=== PATIENT | female | born 1970 | race Two or more races ===

== ENCOUNTER 2019-10-01 12:58 | Inpatient (IN) | payer SELFPAY ==
[~2019-10-01] VITALS: Ht 157.5 cm; Wt 68.1 kg
[2019-10-01] MEDS ORDERED: MIDAZOLAM 1 MG/ML, 2ML IVPush ONE ×3 (13:00→14:00)
--- NOTE | 2019-10-01 13:00 | NUR ---
1254 code neuro p[address] [phone] dr malin in department/at bedside
[2019-10-01] MEDS ORDERED: MIDAZOLAM 1 MG/ML, 2ML ONE (13:04)
--- NOTE | 2019-10-01 13:23 | NUR ---
1322: Succinylcholine 100mg, Etomidate 20mg IV, intubated with 8ETT by Dr. Vasquez w/out difficulty. +color change easy cap, = B breath sounds. RT @ BS.
[2019-10-01] MEDS ORDERED: OMNIPAQUE 350 MG/ML, 100ML BOTTLE ONE (13:24)
[2019-10-01] MEDS ORDERED: PROPOFOL 100 ML IV PRN (13:26)
[2019-10-01] MEDS ORDERED: PHENYTOIN SODIUM 1,000 MG in SODIUM CHLORIDE 0.9% 100 ML IV ONE (13:30)
[2019-10-01] MEDS ORDERED: SUCCINYLCHOLINE 20 MG/ML, 10ML IVPush ONE (13:30)
[2019-10-01] MEDS ORDERED: PLEASE ENTER HEIGHT AND WEIGHT MC SCH (13:30)
[2019-10-01] MEDS ORDERED: PLEASE ENTER ALLERGIES MC SCH (13:30)
[2019-10-01] MEDS ORDERED: ETOMIDATE 20 MG/10 ML IV ONE (13:30)
[2019-10-01 13:47] LABS: BASOPHILS # (AUTO) 0.04 x10^3/uL (0-0.1); BASOPHILS % (AUTO) 0 % (0-1); EOSINOPHILS # (AUTO) 0.25 x10^3/uL (0-0.4); EOSINOPHILS % (AUTO) 2 % (1-7); LYMPHOCYTES # (AUTO) 3.69 x10^3/uL (1-3.4); LYMPHOCYTES % (AUTO) 33 % (22-44); MD NO; MEAN CORPUSCULAR HEMOGLOBIN 28.2 pg (27.0-34.8); MEAN CORPUSCULAR HGB CONC 32.5 g/dL (32.4-35.8); MEAN CORPUSCULAR VOLUME 86.8 fL (80-100); MEAN PLATELET VOLUME 7.3 fL (7.4-10.4); MONOCYTES # (AUTO) 0.54 x10^3/uL (0.2-0.8); MONOCYTES % (AUTO) 5 % (2-9); NEUTROPHILS % (AUTO) 59 % (42-75); PLATELET COUNT 295 x10^3/uL (130-400); RED BLOOD COUNT 4.61 x10^6/uL (3.82-5.3); RED CELL DISTRIBUTION WIDTH 14.1 % (9.6-15.2)
[2019-10-01 13:55] LABS: ALANINE AMINOTRANSFERASE 23 U/L (12-78); ALBUMIN 3.4 g/dL (3.4-5.0); ANION GAP 3 mmol/L (5-15); CALCIUM 8.3 mg/dL (8.5-10.1); CHLORIDE 112 mmol/L (98-107); INTERNATIONAL NORMALIZED RATIO 0.95 (0.93-1.1)
[2019-10-01 13:57] LABS: ALKALINE PHOSPHATASE 71 U/L (45-117); BILIRUBIN,TOTAL 0.2 mg/dL (0.2-1.0); CREATININE 0.96 mg/dL (0.55-1.02); TOTAL PROTEIN 7.4 g/dL (6.4-8.2)
--- NOTE | 2019-10-01 13:57 | NUR ---
late entry: [facility] Pt started having jerky movemnt, then was not speaking or able to walk. EMS was called. Pt on arrival was having tonic clonic movements with generalized neuro deficets. Pt was not responsive with a gcs of 9. Pt then was taken to CT and back to the ed. Emergency md and Neuro Md (alejandro) Evaluated pt at bedside and was determined to best intubate her to protect her airway since the seizures continued. Pt was responisve to versed and propafol and diilatin infused. Awaiting further orders at this time.
[2019-10-01] MEDS ORDERED: SODIUM CHLORIDE FLUSH 10ML SYR IVF PRN (14:00)
[2019-10-01] MEDS ORDERED: FILTER 0.22 MICRON FOR PHENYTOIN IV PRN (14:00)
[2019-10-01] MEDS ORDERED: SODIUM CHLORIDE 0.9% 1,000 ML IV ONE (14:02)
[2019-10-01 14:09] LABS: SALICYLATE LEVEL < 1.7 mg/dL (2.8-20.0)
--- NOTE | 2019-10-01 14:12 | NUR ---
stat eeg ordered/ called and spoke with daisha ([phone]) and they are aware of exam. she will notify kathie who does eeg's and inform him of order.
[2019-10-01] MEDS ORDERED: VALPROATE SODIUM IV SCH (14:30)
[2019-10-01] MEDS ORDERED: SODIUM CHLORIDE 0.9% IV SCH (14:30)
[2019-10-01] MEDS ORDERED: SODIUM CHLORIDE 0.9% 1,000ML IVBOLUS ONE (14:30)
[2019-10-01] MEDS ORDERED: MIDAZOLAM HCL 25 MG in SODIUM CHLORIDE 0.9% 245 ML IV PRN (14:33)
--- NOTE | 2019-10-01 14:35 | NUR ---
Pts bp dropping, informed. Pt to have versed drip.
--- NOTE | 2019-10-01 14:36 | NUR ---
mandiy collected by water resource project manager given back to family members at bedside. 1 bag of belongins with clothes and underware in it.
[2019-10-01] MEDS ORDERED: AZITHROMYCIN 500 MG in SODIUM CHLORIDE 0.9% 250 ML IVPB ONE (15:00)
[2019-10-01] MEDS ORDERED: SODIUM CHLORIDE 0.9% IV ONE (15:00)
[2019-10-01] MEDS ORDERED: LORazepam 2 MG/ML, 1ML IVPush PRN (15:00)
[2019-10-01] MEDS ORDERED: ONDANSETRON 2MG/ML, 2ML IVPush PRN (15:00)
[2019-10-01] MEDS ORDERED: LABETALOL 5MG/ML, 20ML IVPush PRN (15:00)
[2019-10-01] MEDS ORDERED: POLYETHYLENE GLYCOL 17 GM PACKET PO PRN (15:00)
[2019-10-01] MEDS ORDERED: VALPROATE SODIUM IV ONE (15:00)
[2019-10-01] MEDS ORDERED: OXYcodone IR 5MG TABLET PO PRN (15:00)
[2019-10-01] MEDS ORDERED: CEFTRIAXONE PMX 1GM/50ML 50 ML IVPB ONE (15:00)
[2019-10-01] MEDS ORDERED: BISACODYL 10 MG SUPP PR PRN ×2 (15:00→17:00)
[2019-10-01] MEDS ORDERED: CEFTRIAXONE PMX 1GM/50ML 50 ML ONE (15:43)
--- NOTE | 2019-10-01 15:48 | NUR ---
Report called to Antoinette ROME in [facility]. Aware pt going to MRI. Pt has 3pivs and 5 drips going. Pt resting in room.
[2019-10-01] MEDS ORDERED: ACETAMINOPHEN 650 MG/20.3 ML UDC ONE (15:50)
[2019-10-01] MEDS: ACETAMINOPHEN 325 MG TABLET PO PRN (15:53)
[2019-10-01] MEDS ORDERED: INSULIN LISPRO 100 UNITS/ML, PEN SQ-INSULIN SCH (16:00)
--- NOTE | 2019-10-01 16:40 | NUR ---
Pt transported to safely to MRI without complications and procedure was started. Bedside report was given to On[facility] RNs. Pt vss upon this rn leaving room. All drip on appropriate equipment for MRI. This concludes this [facility] care.
[2019-10-01] MEDS ORDERED: MIDAZOLAM 1 MG/ML, 5ML ONE (16:41)
[2019-10-01] MEDS ORDERED: ETOMIDATE 40 MG/20 ML ONE (16:41)
[2019-10-01] MEDS ORDERED: PROPOFOL 10 MG/ML, 100ML IV ONE (16:41)
[2019-10-01] MEDS ORDERED: SUCCINYLCHOLINE 20 MG/ML, 10ML ONE (16:41)
[2019-10-01] MEDS ORDERED: NOREPINEPHRINE 4 MG in SODIUM CHLORIDE 0.9% 246 ML IV PRN (16:53)
[2019-10-01] MEDS ORDERED: DEXTROSE 50%, 50ML SYRINGE IVPush PRN (17:00)
[2019-10-01] MEDS ORDERED: LIDOCAINE-MPF 1%, 2ML ENDO PRN (17:00)
[2019-10-01] MEDS ORDERED: PHARMACY MAY ADJ FOR RENAL FX MC SCH (17:00)
[2019-10-01] MEDS ORDERED: DEXTROSE 4 GM TAB.CHEW PO PRN (17:00)
[2019-10-01] MEDS ORDERED: SENNA 176 MG/5 ML ORAL SOL NG PRN (17:00)
[2019-10-01] MEDS ORDERED: SENNA/DOCUSATE TABLET NG PRN (17:00)
[2019-10-01] MEDS ORDERED: GLUCAGON 1 MG IM PRN (17:00)
[2019-10-01] MEDS ORDERED: MIDAZOLAM 1 MG/ML, 2ML IVPush PRN (17:00)
[2019-10-01] MEDS ORDERED: FENTANYL PF 100 MCG/2ML IVPush PRN (17:00)
[2019-10-01] MEDS ORDERED: LACTULOSE 20 GM/30 ML UDC NG PRN (17:00)
[2019-10-01] MEDS ORDERED: GADOTERATE 7.5 MMOL/15 ML SYR ONE (17:09)
[2019-10-01] MEDS: SODIUM CHLORIDE 0.9% 1,000 ML IV SCH (17:53)
[2019-10-01] MEDS: PROPOFOL 100 ML IV PRN ×2 (17:53→22:58)
[2019-10-01] MEDS: ALBUTEROL SULFATE 2.5 MG/3 ML INLINE SCH ×2 (19:17→23:46)
[2019-10-01] MEDS: INSULIN LISPRO 100 UNITS/ML, PEN SQ-INSULIN SCH (21:00)
[2019-10-01] MEDS: SODIUM CHLORIDE FLUSH 10ML SYR IVF SCH (21:00)
[2019-10-01] MEDS: MIDAZOLAM HCL 25 MG in SODIUM CHLORIDE 0.9% 245 ML IV PRN (21:17)
[2019-10-01] MEDS: ENOXAPARIN 40 MG/0.4 ML SQ SCH (21:24)
[2019-10-01] MEDS: FAMOTIDINE 20 MG/2 ML IVPush SCH (21:25)
[2019-10-01 22:00] LABS: AMPHETAMINE SCREEN, URINE Negative (Negative); BARBITURATE SCREEN, URINE Negative (Negative); BENZODIAZEPINE SCREEN, URINE Positive (Negative); CANNABINOID SCREEN, URINE Negative (Negative); COCAINE SCREEN, URINE Negative (Negative); METHADONE SCREEN, URINE Negative (Negative); OPIATE SCREEN, URINE Negative (Negative)
[2019-10-02] MEDS: INSULIN LISPRO 100 UNITS/ML, PEN SQ-INSULIN SCH ×4 (03:00→21:00)
[2019-10-02] MEDS: MIDAZOLAM HCL 25 MG in SODIUM CHLORIDE 0.9% 245 ML IV PRN ×2 (03:07→04:20)
[2019-10-02] MEDS: SODIUM CHLORIDE 0.9% 1,000 ML IV SCH ×2 (03:07→14:00)
[2019-10-02 04:00] VITALS: BP 117/72
[2019-10-02] MEDS: ALBUTEROL SULFATE 2.5 MG/3 ML INLINE SCH ×3 (04:03→11:00)
[2019-10-02 04:27] LABS: BASOPHILS # (AUTO) 0.04 x10^3/uL (0-0.1); BASOPHILS % (AUTO) 0 % (0-1); EOSINOPHILS # (AUTO) 0.04 x10^3/uL (0-0.4); EOSINOPHILS % (AUTO) 0 % (1-7); LYMPHOCYTES % (AUTO) 26 % (22-44); MD NO; MEAN CORPUSCULAR HEMOGLOBIN 28.2 pg (27.0-34.8); MEAN CORPUSCULAR HGB CONC 33.1 g/dL (32.4-35.8); MEAN CORPUSCULAR VOLUME 85.3 fL (80-100); MEAN PLATELET VOLUME 7.4 fL (7.4-10.4); MONOCYTES % (AUTO) 7 % (2-9); NEUTROPHILS # (AUTO) 6.97 x10^3/uL (1.8-6.8); NEUTROPHILS % (AUTO) 67 % (42-75); PLATELET COUNT 212 x10^3/uL (130-400); RED CELL DISTRIBUTION WIDTH 14.4 % (9.6-15.2)
[2019-10-02 04:37] LABS: ALBUMIN 2.7 g/dL (3.4-5.0); ANION GAP 6 mmol/L (5-15); CHLORIDE 117 mmol/L (98-107)
[2019-10-02 04:40] LABS: ALANINE AMINOTRANSFERASE 20 U/L (12-78); ALKALINE PHOSPHATASE 51 U/L (45-117); BILIRUBIN,TOTAL 0.4 mg/dL (0.2-1.0); CREATININE 0.91 mg/dL (0.55-1.02)
[2019-10-02] MEDS: PROPOFOL 100 ML IV PRN (06:28)
[2019-10-02] MEDS ORDERED: LEVETIRACETAM 100 MG/ML, 5ML IVPB ONE (08:32)
[2019-10-02] MEDS ORDERED: LEVETIRACETAM 1,000 MG in SODIUM CHLORIDE 0.9% 100 ML IV ONE (09:00)
[2019-10-02] MEDS: FAMOTIDINE 20 MG/2 ML IVPush SCH ×2 (09:20→21:03)
[2019-10-02] MEDS: SODIUM CHLORIDE FLUSH 10ML SYR IVF SCH ×3 (09:21→20:59)
[2019-10-02] MEDS: SENNA/DOCUSATE TABLET PO SCH (09:21)
[2019-10-02] MEDS ORDERED: PROPOFOL 100 ML IV PRN (12:01)
[2019-10-02] MEDS ORDERED: FENTANYL PF 100 MCG/2ML IVPush PRN (12:30)
[2019-10-02] MEDS ORDERED: DEXTROSE 4 GM TAB.CHEW PO PRN (12:30)
[2019-10-02] MEDS ORDERED: DEXTROSE 50%, 50ML SYRINGE IVPush PRN (12:30)
[2019-10-02] MEDS ORDERED: LACTULOSE 20 GM/30 ML UDC NG PRN (12:30)
[2019-10-02] MEDS ORDERED: GLUCAGON 1 MG IM PRN (12:30)
[2019-10-02] MEDS ORDERED: PHARMACY MAY ADJ FOR RENAL FX MC SCH (12:30)
[2019-10-02] MEDS ORDERED: ALBUTEROL/IPRATROPIUM 2.5MG/0.5MG, 3 ML INLINE SCH (12:30)
[2019-10-02] MEDS ORDERED: LIDOCAINE-MPF 1%, 2ML ENDO PRN (12:30)
[2019-10-02] MEDS: ACETAMINOPHEN 325 MG TABLET PO PRN (17:47)
[2019-10-02] MEDS: LEVETIRACETAM 500 MG TABLET PO SCH (21:00)
[2019-10-02] MEDS: ENOXAPARIN 40 MG/0.4 ML SQ SCH (21:01)
[2019-10-03 04:00] VITALS: BP 101/71
[2019-10-03 05:15] LABS: BASOPHILS # (AUTO) 0.04 x10^3/uL (0-0.1); BASOPHILS % (AUTO) 1 % (0-1); EOSINOPHILS # (AUTO) 0.21 x10^3/uL (0-0.4); EOSINOPHILS % (AUTO) 3 % (1-7); LYMPHOCYTES # (AUTO) 2.59 x10^3/uL (1-3.4); LYMPHOCYTES % (AUTO) 38 % (22-44); MD NO; MEAN CORPUSCULAR HEMOGLOBIN 28.3 pg (27.0-34.8); MEAN CORPUSCULAR HGB CONC 32.2 g/dL (32.4-35.8); MEAN CORPUSCULAR VOLUME 87.8 fL (80-100); MONOCYTES # (AUTO) 0.54 x10^3/uL (0.2-0.8); MONOCYTES % (AUTO) 8 % (2-9); NEUTROPHILS % (AUTO) 50 % (42-75); PLATELET COUNT 219 x10^3/uL (130-400); RED CELL DISTRIBUTION WIDTH 14.4 % (9.6-15.2)
[2019-10-03] MEDS ORDERED: LEVE500T53 PO (06:31)
[2019-10-03] MEDS: INSULIN LISPRO 100 UNITS/ML, PEN SQ-INSULIN SCH (07:00)
[2019-10-03] MEDS: FAMOTIDINE 20 MG/2 ML IVPush SCH (08:39)
[2019-10-03] MEDS: SENNA/DOCUSATE TABLET PO SCH (08:40)
[2019-10-03] MEDS: SODIUM CHLORIDE FLUSH 10ML SYR IVF SCH ×2 (08:41)
[2019-10-03] MEDS: LEVETIRACETAM 500 MG TABLET PO SCH (08:43)
[2019-10-03 09:11] VITALS: BP 137/95
== END 2019-10-03 10:00 | disposition home or self-care (01) | DRG 100 ==
LOC: ED 14:29 → EDIP 14:39 → ICU 17:09 → DCLOUNGE 10-03 09:45
PROVIDERS: ADMIT Internal Medicine; ATTEND Internal Medicine
PROC: 5A1935Z Respiratory Ventilation, Less than 24 Consecutive Hours (ICD-10-PCS; principal; 2019-10-01)
PROC: 0BH17EZ Insertion of Endotracheal Airway into Trachea, Via Natural or Artificial Opening (ICD-10-PCS; 2019-10-01)
DX: G40.101 Localization-related (focal) (partial) symptomatic epilepsy and epileptic syndromes with simple partial seizures, not intractable, with status epilepticus (principal); J96.01 Acute respiratory failure with hypoxia; E87.3 Alkalosis; Z99.11 Dependence on respirator [ventilator] status; H40.9 Unspecified glaucoma; D72.828 Other elevated white blood cell count; E11.9 Type 2 diabetes mellitus without complications; H51.8 Other specified disorders of binocular movement; I10 Essential (primary) hypertension; Z79.84 Long term (current) use of oral hypoglycemic drugs; Z82.49 Family history of ischemic heart disease and other diseases of the circulatory system
CPT/HCPCS: 36415; 36600; 84145; J3490; J7613; 31500; 70450; 70496; 70498; 70544; 70553; 71045; 80047; 80053; 80307; 82803; 82962; 83605; 83735; 84478; 85025; 85610; 85730; 87040; 87070; 87081; 87205; 93005; 94002; 94003; 94150; 94640; 95951; 99291; G0378; J0456; J0696; J1165; J1650; J1953; J2250; J2704; Q9967; A9575; J0330; J2060; J7030; J7050